=== PATIENT | male | born 1975 | race Caucasian/White ===

== ENCOUNTER 2019-11-17 23:36 | Emergency (ER) | payer SELFPAY ==
[~2019-11-17] VITALS: Ht 177.8 cm; Wt 80.0 kg
[2019-11-17 23:39] VITALS: BP 107/73
[2019-11-18] MEDS ORDERED: METHOCARBAMOL 750 MG TABLET PO ONE
[2019-11-18] MEDS ORDERED: METHOCARBAMOL 750 MG TABLET ONE (00:02)
--- NOTE | 2019-11-18 01:30 | NUR ---
PT STATES HE IS NOW READY FOR XRAY. IMAGING NOTIFIED. CALL LIGHT IN REACH.
--- NOTE | 2019-11-18 02:01 | NUR ---
this tech went to do ekg, pateint refused and wanted to speak to doctor before allowing me to do it.
--- NOTE | 2019-11-18 02:20 | NUR ---
PA at bedside
[2019-11-18] MEDS ORDERED: HYDROcodone/APAP 5/325 TABLET ONE (02:29)
[2019-11-18] MEDS ORDERED: HYDROcodone/APAP 5/325 TABLET PO ONE (02:30)
== END 2019-11-18 02:53 | disposition home or self-care (01) ==
LOC: ED 11-18 00:06
DX: G89.11 Acute pain due to trauma (principal); M54.41 Lumbago with sciatica, right side; W01.0XXA Fall on same level from slipping, tripping and stumbling without subsequent striking against object, initial encounter; Y93.89 Activity, other specified; Y92.89 Other specified places as the place of occurrence of the external cause; Y99.8 Other external cause status
CPT/HCPCS: 99284; J7512

== ENCOUNTER 2019-11-20 13:03 | Inpatient (IN) | payer MEDICAID, OTHER ==
[~2019-11-20] VITALS: Ht 177.8 cm; Wt 76.1 kg
[~2019-11-20 13:03] MED LIST: GLYCOPYRROLATE 0.2MG/1ML, 5ML ONE; NEOSTIGMINE 1 MG/ML, 10ML ONE; PROPOFOL 10 MG/ML, 20ML ONE; ROCURONIUM 10 MG/ML,10ML ONE
[2019-11-20] MEDS ORDERED: ONDANSETRON 2MG/ML, 2ML ONE (13:51)
[2019-11-20] MEDS ORDERED: MORPHINE SULFATE 4 MG/ML, 1ML ONE (13:52)
[2019-11-20] MEDS ORDERED: MORPHINE SULFATE 4 MG/ML, 1ML IVPush PRN (14:00)
[2019-11-20] MEDS ORDERED: SODIUM CHLORIDE FLUSH 10ML SYR IVF ONE (14:00)
[2019-11-20] MEDS ORDERED: ONDANSETRON 2MG/ML, 2ML IVPush ONE (14:00)
[2019-11-20] MEDS ORDERED: HYDROmorphone 1 MG/ML, 1ML INJ ONE ×2 (14:31→17:24)
[2019-11-20] MEDS: HYDROmorphone 2 MG/ML, 1ML IVPush PRN ×2 (14:34→17:28)
--- NOTE | 2019-11-20 14:34 | NUR ---
PT MEDICATED WITH DILAUDID PER ERP ORDER FOR PERSISTENT PAIN, UNABLE TO LIE FLAT FOR CT.
[2019-11-20] MEDS ORDERED: LORazepam 2 MG/ML, 1ML ONE (14:50)
--- NOTE | 2019-11-20 14:55 | NUR ---
ATIVAN GIVEN, PT PLACED ON 2LITERS VIA NC FOR DESAT TO 90%. PT STATES MORPHINE AND DILAUDID HAVEN'T HELPED PAIN. STILL RATED 9/10 WITH REPORTED MUSCLE SPASMS WORSENING WHEN ATTEMPTING TO LIE FLAT.
[2019-11-20] MEDS ORDERED: LORazepam 2 MG/ML, 1ML IVPush ONE (15:00)
--- NOTE | 2019-11-20 15:04 | NUR ---
PT REPORTING "PAIN IS WORSE" AFTER ATIVAN. ERP NOTIFIED, IN TO SPEAK WITH PT.
[2019-11-20] MEDS ORDERED: KETAMINE 10 MG/ML, 20ML ONE (15:19)
--- NOTE | 2019-11-20 15:27 | NUR ---
PT PLACED ON HEART MONITOR. KETAMINE GIVEN PER ERP ORDER. VSS/UPDATED IN COMPUTER. PT STILL UNABLE TO LIE FLAT AT THIS TIME AND REPORTS LOW BACK AND BLE PAIN STILL AT 9/10
[2019-11-20] MEDS ORDERED: KETAMINE 10 MG/ML, 20ML IV ONE (15:30)
--- NOTE | 2019-11-20 16:44 | NUR ---
PER ERP, PT TO BE ADMITTED FOR PAIN CONTROL AND INABILITY TO STAND. MED REC COMPLETED.
[2019-11-20] MEDS ORDERED: methylPREDNISolone SOD SUCC 125 MG/2 ML ONE (16:55)
[2019-11-20] MEDS ORDERED: GABAPENTIN 300 MG CAPSULE PO PRN (17:00)
[2019-11-20] MEDS ORDERED: PROMETHAZINE 25 MG/ML, 1ML IM PRN (17:00)
[2019-11-20] MEDS ORDERED: methylPREDNISolone SOD SUCC 125 MG/2 ML IVPush ONE (17:00)
[2019-11-20] MEDS ORDERED: ONDANSETRON 2MG/ML, 2ML IVPush PRN (17:00)
[2019-11-20] MEDS ORDERED: hydrALAzine 20 MG/ML, 1ML IVPush PRN (17:00)
[2019-11-20] MEDS ORDERED: LABETALOL 5MG/ML, 20ML IVPush PRN (17:00)
[2019-11-20] MEDS ORDERED: ACETAMINOPHEN 325 MG TABLET PO PRN (17:00)
[2019-11-20] MEDS ORDERED: HYDROmorphone 1 MG/ML, 1ML INJ IV ONE (17:30)
--- NOTE | 2019-11-20 17:32 | NUR ---
PT MEDICATED WITH DILAUDID PER ERP ORDER. PT TO MRI.
[2019-11-20 17:42] LABS: ANION GAP 7 mmol/L (5-15); CALCIUM 9.1 mg/dL (8.5-10.1); CHLORIDE 104 mmol/L (98-107); CREATININE 0.76 mg/dL (0.7-1.3)
[2019-11-20 17:43] LABS: BASOPHILS % (AUTO) 0 % (0-1); EOSINOPHILS % (AUTO) 0 % (1-7); LYMPHOCYTES # (AUTO) 0.63 x10^3/uL (1-3.4); LYMPHOCYTES % (AUTO) 8 % (22-44); MD NO; MEAN CORPUSCULAR HEMOGLOBIN 31.1 pg (27.5-34.5); MEAN CORPUSCULAR HGB CONC 34.5 g/dL (33.2-36.2); MEAN CORPUSCULAR VOLUME 90.2 fL (81-97); MEAN PLATELET VOLUME 8.6 fL (7.4-10.4); MONOCYTES # (AUTO) 0.05 x10^3/uL (0.2-0.8); MONOCYTES % (AUTO) 1 % (2-9); NEUTROPHILS # (AUTO) 6.85 x10^3/uL (1.8-6.8); NEUTROPHILS % (AUTO) 91 % (42-75); PLATELET COUNT 202 x10^3/uL (130-400); RED BLOOD COUNT 5.08 x10^6/uL (4.38-5.82); RED CELL DISTRIBUTION WIDTH 12.9 % (9.4-14.8)
--- NOTE | 2019-11-20 17:45 | NUR ---
REPORT TO VERONICA. PT BACK FROM MRI, READY FOR TRANSPORT TO FLOOR. PER RN INTAKE, PT UNABLE TO LIE FLAT TO COMPLETE EXAM.
[2019-11-20 18:09] VITALS: BP 98/63
[2019-11-20] MEDS: SODIUM CHLORIDE 0.9% 1,000 ML IV SCH (18:36)
[2019-11-20] MEDS: GABAPENTIN 300 MG CAPSULE PO SCH ×2 (18:37→20:24)
[2019-11-20] MEDS: OXYcodone/APAP 5/325MG TABLET PO PRN ×2 (18:37→23:24)
[2019-11-20] MEDS: morphine SULFATE 10 MG/ML, 1ML IVPush PRN (20:24)
[2019-11-20 20:39] VITALS: BP 98/58
[2019-11-21 01:18] VITALS: BP 100/66
[2019-11-21] MEDS: morphine SULFATE 10 MG/ML, 1ML IVPush PRN ×3 (03:30→20:31)
[2019-11-21] MEDS: OXYcodone/APAP 5/325MG TABLET PO PRN ×2 (04:01→23:31)
[2019-11-21] MEDS ORDERED: METH750T2 PO (04:09)
[2019-11-21] MEDS ORDERED: PRED20TA PO (04:09)
[2019-11-21 05:26] LABS: CHLORIDE 106 mmol/L (98-107)
[2019-11-21 05:28] LABS: BASOPHILS % (AUTO) 0 % (0-1); EOSINOPHILS % (AUTO) 0 % (1-7); LYMPHOCYTES # (AUTO) 1.03 x10^3/uL (1-3.4); LYMPHOCYTES % (AUTO) 11 % (22-44); MD NO; MEAN CORPUSCULAR HEMOGLOBIN 30.5 pg (27.5-34.5); MEAN CORPUSCULAR HGB CONC 33.3 g/dL (33.2-36.2); MEAN CORPUSCULAR VOLUME 91.6 fL (81-97); MEAN PLATELET VOLUME 8.6 fL (7.4-10.4); MONOCYTES # (AUTO) 0.41 x10^3/uL (0.2-0.8); MONOCYTES % (AUTO) 5 % (2-9); NEUTROPHILS # (AUTO) 7.66 x10^3/uL (1.8-6.8); NEUTROPHILS % (AUTO) 84 % (42-75); PLATELET COUNT 193 x10^3/uL (130-400); RED BLOOD COUNT 4.67 x10^6/uL (4.38-5.82)
[2019-11-21 05:39] LABS: ALANINE AMINOTRANSFERASE 23 U/L (12-78); ALBUMIN 3.6 g/dL (3.4-5.0); ALKALINE PHOSPHATASE 46 U/L (45-117); ANION GAP 6 mmol/L (5-15); BILIRUBIN,TOTAL 0.8 mg/dL (0.2-1.0); CALCIUM 8.7 mg/dL (8.5-10.1); CREATININE 0.84 mg/dL (0.7-1.3); TOTAL PROTEIN 6.9 g/dL (6.4-8.2)
[2019-11-21 06:54] VITALS: BP 86/58
[2019-11-21] MEDS: SODIUM CHLORIDE 0.9% 1,000 ML IV SCH ×2 (07:40→20:31)
[2019-11-21] MEDS: GABAPENTIN 300 MG CAPSULE PO SCH ×3 (07:41→20:31)
[2019-11-21] MEDS ORDERED: HYDROcodone/APAP 5/325 TABLET PO ONE (08:30)
[2019-11-21] MEDS ORDERED: CYCLOBENZAPRINE 10 MG TABLET PO ONE (08:30)
[2019-11-21] MEDS ORDERED: MEDROL 4MG DOSEPAK PO SCH (09:00)
[2019-11-21 09:27] VITALS: BP 105/64
[2019-11-21] MEDS ORDERED: FENTANYL PF 100 MCG/2ML ONE ×2 (12:28→14:26)
[2019-11-21] MEDS ORDERED: MIDAZOLAM 1 MG/ML, 2ML ONE (12:28)
[2019-11-21] MEDS ORDERED: TRIAMCINOLONE ACETONIDE 40 MG/ML, 1ML ONE (13:27)
[2019-11-21] MEDS: FENTANYL PF 100 MCG/2ML IV PRN ×2 (14:14→14:33)
[2019-11-21] MEDS ORDERED: HYDROmorphone 1 MG/ML, 1ML INJ ONE (14:26)
[2019-11-21] MEDS ORDERED: OXYcodone 5 MG/5 ML ORAL.SOL UDC ONE (14:26)
[2019-11-21] MEDS ORDERED: ONDANSETRON 2MG/ML, 2ML IVPush PRN (14:30)
[2019-11-21] MEDS ORDERED: OXYcodone 5 MG/5 ML ORAL.SOL UDC PO PRN (14:30)
[2019-11-21] MEDS ORDERED: MEPERIDINE/PF 25MG/0.5ML IVPush PRN (14:30)
[2019-11-21] MEDS ORDERED: morphine SULFATE 10 MG/ML, 1ML IVPush PRN (14:30)
[2019-11-21] MEDS: HYDROmorphone 1 MG/ML, 1ML INJ IVPush PRN ×2 (14:34→14:42)
[2019-11-21] MEDS: CYCLOBENZAPRINE 10 MG TABLET PO PRN ×2 (16:45→23:31)
[2019-11-21] MEDS: HYDROcodone/APAP 5/325 TABLET PO PRN ×2 (17:01→21:23)
[2019-11-21 18:43] VITALS: BP 102/53
[2019-11-22] MEDS: morphine SULFATE 10 MG/ML, 1ML IVPush PRN ×2 (00:12→03:43)
[2019-11-22 00:35] VITALS: BP 92/54
[2019-11-22] MEDS: HYDROcodone/APAP 5/325 TABLET PO PRN ×4 (03:42→22:18)
[2019-11-22] MEDS: SODIUM CHLORIDE 0.9% 1,000 ML IV SCH (03:43)
[2019-11-22] MEDS: OXYcodone/APAP 5/325MG TABLET PO PRN ×2 (05:22→19:14)
[2019-11-22] MEDS: CYCLOBENZAPRINE 10 MG TABLET PO PRN (05:22)
[2019-11-22] MEDS: GABAPENTIN 300 MG CAPSULE PO SCH ×3 (08:07→19:14)
[2019-11-22] MEDS: CYCLOBENZAPRINE 10 MG TABLET PO SCH ×3 (08:07→19:14)
[2019-11-22 08:08] VITALS: BP 104/61
[2019-11-22] MEDS: DIAZEPAM 5 MG/ML, 2ML IV PRN ×2 (08:08→18:04)
[2019-11-22] MEDS ORDERED: BISACODYL 10 MG SUPP PR PRN (10:00)
[2019-11-22] MEDS: DEXAMETHASONE 4 MG TABLET PO SCH ×3 (10:22→22:18)
[2019-11-22] MEDS: SENNA/DOCUSATE TABLET PO SCH (10:23)
[2019-11-22] MEDS: LIDODERM 5% PATCH TD PRN (10:24)
[2019-11-22] MEDS: POLYETHYLENE GLYCOL 17 GM PACKET PO SCH (10:24)
[2019-11-22 13:45] VITALS: BP 102/58
[2019-11-22 19:00] VITALS: BP 116/70
[2019-11-23 00:22] VITALS: BP 121/73
[2019-11-23] MEDS: HYDROcodone/APAP 5/325 TABLET PO PRN ×3 (02:09→19:29)
[2019-11-23] MEDS: DEXAMETHASONE 4 MG TABLET PO SCH ×4 (05:15→22:22)
[2019-11-23] MEDS: OXYcodone/APAP 5/325MG TABLET PO PRN ×2 (05:15→14:02)
[2019-11-23] MEDS: CYCLOBENZAPRINE 10 MG TABLET PO SCH ×3 (07:34→22:22)
[2019-11-23] MEDS: POLYETHYLENE GLYCOL 17 GM PACKET PO SCH (07:34)
[2019-11-23] MEDS: SENNA/DOCUSATE TABLET PO SCH (07:34)
[2019-11-23] MEDS: GABAPENTIN 300 MG CAPSULE PO SCH ×3 (07:34→22:22)
[2019-11-23 08:34] VITALS: BP 124/75
[2019-11-23] MEDS: KETOROLAC 30 MG/1 ML IVPush SCH ×3 (10:17→22:22)
[2019-11-23] MEDS: LIDODERM 5% PATCH TD PRN (11:36)
[2019-11-23 12:55] VITALS: BP 121/77
[2019-11-23] MEDS: ENOXAPARIN 40 MG/0.4 ML SQ SCH (14:02)
[2019-11-23 19:29] VITALS: BP 111/76
[2019-11-23 20:00] VITALS: BP 119/75
[2019-11-24 00:10] VITALS: BP 124/75
[2019-11-24] MEDS: OXYcodone/APAP 5/325MG TABLET PO PRN ×2 (00:39→22:41)
[2019-11-24] MEDS: DEXAMETHASONE 4 MG TABLET PO SCH ×4 (04:41→22:31)
[2019-11-24] MEDS: KETOROLAC 30 MG/1 ML IVPush SCH ×4 (04:41→22:29)
[2019-11-24] MEDS: HYDROcodone/APAP 5/325 TABLET PO PRN ×3 (04:41→14:35)
[2019-11-24 06:39] VITALS: BP 131/74
[2019-11-24] MEDS: SENNA/DOCUSATE TABLET PO SCH (09:36)
[2019-11-24] MEDS: CYCLOBENZAPRINE 10 MG TABLET PO SCH ×3 (09:36→22:30)
[2019-11-24] MEDS: GABAPENTIN 300 MG CAPSULE PO SCH ×3 (09:36→22:31)
[2019-11-24] MEDS: POLYETHYLENE GLYCOL 17 GM PACKET PO SCH (09:36)
[2019-11-24 12:34] VITALS: BP 120/79
[2019-11-24] MEDS: ENOXAPARIN 40 MG/0.4 ML SQ SCH ×2 (14:00→14:35)
[2019-11-24] MEDS: LIDODERM 5% PATCH TD PRN (16:15)
[2019-11-24 18:52] VITALS: BP 118/76
[2019-11-25 00:46] VITALS: BP 119/70
[2019-11-25] MEDS: DEXAMETHASONE 4 MG TABLET PO SCH ×3 (04:40→16:24)
[2019-11-25] MEDS: KETOROLAC 30 MG/1 ML IVPush SCH ×3 (04:40→16:24)
[2019-11-25] MEDS: OXYcodone/APAP 5/325MG TABLET PO PRN ×4 (04:44→18:03)
[2019-11-25 06:42] VITALS: BP 138/78
[2019-11-25] MEDS: SENNA/DOCUSATE TABLET PO SCH (09:00)
[2019-11-25] MEDS: POLYETHYLENE GLYCOL 17 GM PACKET PO SCH (09:00)
[2019-11-25] MEDS: GABAPENTIN 300 MG CAPSULE PO SCH ×2 (09:23→16:24)
[2019-11-25] MEDS: CYCLOBENZAPRINE 10 MG TABLET PO SCH ×2 (09:23→16:24)
[2019-11-25] MEDS ORDERED: SODIUM CHLORIDE 0.9% 1,000 ML IV SCH (10:30)
[2019-11-25 13:04] VITALS: BP 122/67
[2019-11-25] MEDS: ENOXAPARIN 40 MG/0.4 ML SQ SCH ×2 (13:26→13:30)
[2019-11-25] MEDS ORDERED: CYCL-259 PO (17:17)
[2019-11-25] MEDS ORDERED: NAPR-685 PO (17:17)
[2019-11-25] MEDS ORDERED: LIDO700A20 TD (17:17)
[2019-11-25] MEDS ORDERED: METH4TAB2 PO (17:17)
[2019-11-25] MEDS: LIDODERM 5% PATCH TD PRN (19:10)
== END 2019-11-25 19:23 | disposition home or self-care (01) | DRG 552 ==
LOC: ED 14:48 → EDIP 16:56 → 3N 18:01
PROVIDERS: ADMIT Internal Medicine; ATTEND Internal Medicine
PROC: 3E0S33Z Introduction of Anti-inflammatory into Epidural Space, Percutaneous Approach (ICD-10-PCS; principal; 2019-11-21 12:30)
DX: M48.061 Spinal stenosis, lumbar region without neurogenic claudication (principal); M51.16 Intervertebral disc disorders with radiculopathy, lumbar region; M51.17 Intervertebral disc disorders with radiculopathy, lumbosacral region; M62.81 Muscle weakness (generalized); R20.0 Anesthesia of skin; M19.90 Unspecified osteoarthritis, unspecified site; Z20.828 Contact with and (suspected) exposure to other viral communicable diseases
CPT/HCPCS: 36415; 62323; 72131; 72148; 72192; 80048; 80053; 82962; 85025; 87635; G0378; J1170; J1650; J1885; J2250; J2405; J2704; J2710; J3010; J3301; J3360; J7509; J2060; J2270; J2930; J7030

== ENCOUNTER → 2020-01-13 | Outpatient (CLI) | payer MEDICAID ==
[~2020-01-13] MED LIST changes: +CYCL-259 PO; -GLYCOPYRROLATE 0.2MG/1ML, 5ML ONE; +LIDO700A20 TD; +METH4TAB2 PO; +METH750T2 PO; +NAPR-685 PO; -NEOSTIGMINE 1 MG/ML, 10ML ONE; +PRED20TA PO; -PROPOFOL 10 MG/ML, 20ML ONE; -ROCURONIUM 10 MG/ML,10ML ONE
== END | disposition home or self-care (01) ==
LOC: RAD 08:18
PROVIDERS: ATTEND Physician Assistant Surgical
DX: M51.16 Intervertebral disc disorders with radiculopathy, lumbar region (principal); M51.37 Other intervertebral disc degeneration, lumbosacral region
CPT/HCPCS: 72114

== ENCOUNTER 2020-01-20 19:45 | Emergency (ER) | payer MEDICAID ==
[~2020-01-20] VITALS: Ht 177.8 cm; Wt 76.3 kg
--- NOTE | 2020-01-20 20:08 | NUR ---
CC OF INCREASING LOWER BACK FROM FALL INJURY ON 11/20/19. PT SEEN HERE THEN AND HAS BEEN TAKING CYCLOBENZAPRINE SINCE ACCIDENT. PT STATES PAIN STARTS IN NECK AND MOVES DOWN SPINE TO LUMBAR AREA. PT UNABLE TO SIT OR LAY IN GURNEY, SITTING STRAIGHT UP ON SIDE OF GURNEY. MOTHER AT BEDSIDE.
[2020-01-20] MEDS ORDERED: METHOCARBAMOL 750 MG TABLET PO ONE (21:00)
[2020-01-20] MEDS ORDERED: METHOCARBAMOL 750 MG TABLET ONE (21:15)
[2020-01-20 22:06] VITALS: BP 112/76
== END 2020-01-20 22:08 | disposition home or self-care (01) ==
LOC: ED 20:28
DX: M51.26 Other intervertebral disc displacement, lumbar region (principal)
CPT/HCPCS: 99283

== ENCOUNTER 2020-02-05 20:34 | Emergency (ER) | payer MEDICAID ==
[~2020-02-05] VITALS: Ht 177.8 cm; Wt 76.7 kg
--- NOTE | 2020-02-05 23:30 | NUR ---
First contact with patient: Patient presents to ER c/o low back pain x3 days. Patient states he had a previous injury with a herniated disc. Patient is now having pain. Patient is in NAD. Respirations even and unlabored.
[2020-02-05] MEDS ORDERED: KETOROLAC 60 MG/2 ML ONE (23:58)
[2020-02-05] MEDS ORDERED: DIAZEPAM 5 MG TABLET ONE (23:58)
[2020-02-05] MEDS ORDERED: HYDROcodone/APAP 10/325 MG TABLET ONE (23:58)
[2020-02-06] MEDS ORDERED: KETOROLAC 60 MG/2 ML IM ONE
[2020-02-06] MEDS ORDERED: HYDROcodone/APAP 10/325 MG TABLET PO ONE
[2020-02-06] MEDS ORDERED: DIAZEPAM 5 MG TABLET PO ONE
--- NOTE | 2020-02-06 | NUR ---
Medicated patient per mar.
[2020-02-06 00:08] VITALS: BP 116/76
== END 2020-02-06 01:10 | disposition home or self-care (01) ==
LOC: ED 23:13
DX: M54.16 Radiculopathy, lumbar region (principal)
CPT/HCPCS: 96372; 99284; J1885; J7512

== ENCOUNTER 2020-03-23 11:56 | Emergency (ER) | payer MEDICAID ==
[~2020-03-23] VITALS: Ht 177.8 cm; Wt 76.1 kg
[2020-03-23 12:20] VITALS: BP 102/66
--- NOTE | 2020-03-23 12:38 | NUR ---
THORACIC AND LUMBAR BACK PAIN X 4 DAYS. HX: LUMBAR DISK HERNIATION. DENIES BOWEL OR BLADDER ISSUES, NO WEAKNESS OR NUMBNESS OF LEGS. NO LUMBAR SURGICAL HX
[2020-03-23] MEDS ORDERED: KETOROLAC 30 MG/1 ML IM ONE (13:00)
[2020-03-23] MEDS ORDERED: DIAZEPAM 5 MG TABLET PO ONE (13:00)
[2020-03-23] MEDS ORDERED: KETOROLAC 30 MG/1 ML ONE (13:16)
[2020-03-23] MEDS ORDERED: DIAZEPAM 5 MG TABLET ONE (13:16)
--- NOTE | 2020-03-23 13:22 | NUR ---
MEDICATED PER EMAR FOR ACUTE ON CHRONIC LOWER BACK PAIN AT 10/20 WITH DEFICITS
--- NOTE | 2020-03-23 13:46 | NUR ---
PAIN IMPROVED TO 3/10 DISCHARGED IN CARE OF WHO WILL DRIVE HIM HOME REVIEWED POC (PT/F/U WITH PCP AND OR NEUROSURGERY)
== END 2020-03-23 13:49 | disposition home or self-care (01) ==
LOC: ED 13:47
DX: M62.830 Muscle spasm of back (principal)
CPT/HCPCS: 96372; 99283; J1885

== ENCOUNTER 2020-03-31 18:21 | Emergency (ER) | payer MEDICAID ==
[~2020-03-31] VITALS: Ht 177.8 cm; Wt 75.0 kg
--- NOTE | 2020-03-31 19:20 | NUR ---
RN at bedside. Provider at bedside. Family at bedside.
--- NOTE | 2020-03-31 19:38 | NUR ---
Provided pt warm blanket
[2020-03-31] MEDS ORDERED: DIAZEPAM 5 MG TABLET ONE (19:48)
[2020-03-31] MEDS ORDERED: KETOROLAC 30 MG/1 ML ONE (19:48)
[2020-03-31] MEDS ORDERED: DIAZEPAM 5 MG TABLET PO ONE (20:00)
[2020-03-31] MEDS ORDERED: SODIUM CHLORIDE FLUSH 10ML SYR IVF ONE (20:00)
[2020-03-31] MEDS ORDERED: KETOROLAC 30 MG/1 ML IVPush ONE (20:00)
[2020-03-31 21:25] VITALS: BP 112/74
--- NOTE | 2020-03-31 21:57 | NUR ---
Pt discharged with presciptions for muscle relaxer, toradol, and prednisone.
== END 2020-03-31 21:59 | disposition home or self-care (01) ==
LOC: ED 18:56
DX: G89.29 Other chronic pain (principal); M54.12 Radiculopathy, cervical region; M51.36 Other intervertebral disc degeneration, lumbar region; M51.26 Other intervertebral disc displacement, lumbar region; R00.0 Tachycardia, unspecified
CPT/HCPCS: 93005; 96374; 99283; J1885; J7512

== ENCOUNTER 2020-04-06 00:40 | Emergency (ER) | payer MEDICAID ==
[~2020-04-06] VITALS: Ht 177.8 cm; Wt 73.8 kg
[2020-04-06 00:42] VITALS: BP 121/82
[2020-04-06] MEDS ORDERED: LIDODERM 5% PATCH TD ONE ×4 (01:30→03:18)
[2020-04-06] MEDS ORDERED: KETOROLAC 30 MG/1 ML IM ONE (01:30)
[2020-04-06] MEDS ORDERED: DIAZEPAM 5 MG TABLET PO ONE (01:30)
[2020-04-06] MEDS ORDERED: KETOROLAC 30 MG/1 ML ONE (01:39)
[2020-04-06] MEDS ORDERED: DIAZEPAM 5 MG TABLET ONE (01:39)
--- NOTE | 2020-04-06 02:25 | NUR ---
LATE ENTRY. CC OF BACK AND SIDE PAIN. PT STATES HE HAS HAD BACK PAIN FOR 5-6 MONTHS AND HAS STARTED FEELING PAIN TO WHERE HE CANT SLEEP DOWN THE RIGHT SIDE OF HIS BACK ALONG RIBS. PT NOT ABLE TO LAY IN [facility] ROOM DUE TO PAIN.
--- NOTE | 2020-04-06 02:26 | NUR ---
PT STATES HE STILL HAS PAIN AND NO RELIEF WITH PAIN MEDS
[2020-04-06] MEDS ORDERED: HYDROcodone/APAP 5/325 TABLET ONE (03:56)
[2020-04-06] MEDS ORDERED: HYDROcodone/APAP 5/325 TABLET PO ONE (04:00)
== END 2020-04-06 04:15 | disposition home or self-care (01) ==
LOC: ED 03:22
DX: M48.061 Spinal stenosis, lumbar region without neurogenic claudication (principal); M51.36 Other intervertebral disc degeneration, lumbar region; G89.11 Acute pain due to trauma; R07.81 Pleurodynia; W01.0XXA Fall on same level from slipping, tripping and stumbling without subsequent striking against object, initial encounter; Y93.89 Activity, other specified; Y92.89 Other specified places as the place of occurrence of the external cause; Y99.8 Other external cause status
CPT/HCPCS: 71101; 96372; 99284; J1885

== ENCOUNTER 2020-04-10 19:40 | Emergency (ER) | payer MEDICAID ==
[~2020-04-10] VITALS: Ht 177.8 cm; Wt 74.1 kg
[2020-04-10 19:57] VITALS: BP 128/80
--- NOTE | 2020-04-10 20:18 | NUR ---
pt ambulated to room 8. family with pt. standing next to bed. says it's to painful to lie down.
--- NOTE | 2020-04-10 20:19 | NUR ---
PA to bedside to eval pt.
[2020-04-10] MEDS ORDERED: KETOROLAC 30 MG/1 ML ONE (20:47)
[2020-04-10] MEDS ORDERED: DIAZEPAM 5 MG TABLET ONE (20:47)
[2020-04-10] MEDS ORDERED: HYDROcodone/APAP 5/325 TABLET ONE (20:48)
--- NOTE | 2020-04-10 20:57 | NUR ---
meds given to pt and he tolerated well. waiting on dc instructions to send pt home.
[2020-04-10] MEDS ORDERED: HYDROcodone/APAP 5/325 TABLET PO ONE (21:00)
[2020-04-10] MEDS ORDERED: DIAZEPAM 5 MG TABLET PO ONE (21:00)
[2020-04-10] MEDS ORDERED: KETOROLAC 30 MG/1 ML IM ONE (21:00)
== END 2020-04-10 22:05 | disposition home or self-care (01) ==
LOC: ED 20:35
DX: G89.29 Other chronic pain (principal); M54.5 Low back pain; M48.061 Spinal stenosis, lumbar region without neurogenic claudication; M51.36 Other intervertebral disc degeneration, lumbar region
CPT/HCPCS: 99281

== ENCOUNTER 2020-04-11 12:51 | Emergency (ER) | payer MEDICAID ==
[~2020-04-11] VITALS: Ht 177.8 cm; Wt 75.0 kg
[2020-04-11] MEDS ORDERED: DIAZEPAM 5 MG TABLET PO/NG STA (13:37)
[2020-04-11] MEDS ORDERED: KETOROLAC 60 MG/2 ML ONE (13:49)
[2020-04-11] MEDS ORDERED: DIAZEPAM 5 MG TABLET ONE (13:49)
[2020-04-11] MEDS ORDERED: KETOROLAC 30 MG/1 ML IM ONE (14:00)
[2020-04-11 14:53] VITALS: BP 92/52
--- NOTE | 2020-04-11 15:28 | NUR ---
DISCHARGE INSTRUCTIONS REVIEWED.
== END 2020-04-11 15:34 | disposition home or self-care (01) ==
LOC: ED 13:32
DX: M54.5 Low back pain (principal); I45.9 Conduction disorder, unspecified; M54.2 Cervicalgia
CPT/HCPCS: 93005; 96372; 99283; J1885

== ENCOUNTER 2020-04-26 05:56 | Inpatient (IN) | payer MEDICAID ==
[~2020-04-26] VITALS: Ht 177.8 cm; Wt 75.0 kg
[~2020-04-26 05:56] MED LIST changes: -CYCL-259 PO; +CYCL10TA2 PO; +METH-640 PO; -METH750T2 PO
--- NOTE | 2020-04-26 06:15 | NUR ---
INITIAL PT CONTACT. PT PRESENTS TO ED C/O ALL OVER MUSCLE CRAMPS AND LOWER BACK PAIN AND CHEST TIGHTNESS. HX OF LOWER BACK INJURY X5 MONTHS AGO, RECURRENT PAIN SINCE. PT PRONE ON GURNEY, CALL LIGHT AND PERSONAL BELONGINGS WITHIN REACH. FAMILY AT BEDSIDE. ERP AT BEDSIDE
[2020-04-26] MEDS ORDERED: DIAZEPAM 5 MG/ML, 2ML IVPush ONE (06:30)
[2020-04-26] MEDS ORDERED: SODIUM CHLORIDE FLUSH 10ML SYR IVF ONE (06:30)
[2020-04-26] MEDS ORDERED: ONDANSETRON 2MG/ML, 2ML IVPush ONE (06:30)
[2020-04-26] MEDS ORDERED: HYDROmorphone 2 MG/ML, 1ML IVPush PRN (06:30)
[2020-04-26] MEDS ORDERED: DIAZEPAM 5 MG/ML, 2ML ONE (06:37)
[2020-04-26] MEDS ORDERED: ONDANSETRON 2MG/ML, 2ML ONE (06:37)
[2020-04-26] MEDS ORDERED: HYDROmorphone 1 MG/ML, 1ML INJ ONE (06:37)
[2020-04-26 06:47] LABS: BASOPHILS % (AUTO) 0 % (0-1); EOSINOPHILS % (AUTO) 4 % (1-7); LYMPHOCYTES % (AUTO) 31 % (22-44); MEAN CORPUSCULAR HEMOGLOBIN 31.2 pg (27.5-34.5); MEAN CORPUSCULAR HGB CONC 34.7 g/dL (33.2-36.2); MEAN PLATELET VOLUME 7.6 fL (7.4-10.4); MONOCYTES % (AUTO) 6 % (2-9); NEUTROPHILS % (AUTO) 60 % (42-75); PLATELET COUNT 184 x10^3/uL (130-400); RED BLOOD COUNT 4.79 x10^6/uL (4.38-5.82); RED CELL DISTRIBUTION WIDTH 13.3 % (9.4-14.8)
[2020-04-26 06:48] LABS: MD NO
[2020-04-26 06:57] LABS: ALANINE AMINOTRANSFERASE 29 U/L (12-78); ALBUMIN 3.7 g/dL (3.4-5.0); ANION GAP 7 mmol/L (5-15); CALCIUM 8.6 mg/dL (8.5-10.1); CHLORIDE 107 mmol/L (98-107)
--- NOTE | 2020-04-26 06:59 | NUR ---
Pt appears much more comfortable after meds; is smiling, laughing, RR equal and unlabored. Placed on cont pulse ox. Report to LAWRENCE Olguin
[2020-04-26 07:00] LABS: ALKALINE PHOSPHATASE 58 U/L (45-117); CREATINE KINASE, TOTAL 363 U/L (39-308); TOTAL PROTEIN 6.7 g/dL (6.4-8.2)
[2020-04-26] MEDS ORDERED: methylPREDNISolone SOD SUCC 125 MG/2 ML IVPush ONE (07:00)
--- NOTE | 2020-04-26 07:00 | NUR ---
BEDSIDE REPORT TO [facility]
--- NOTE | 2020-04-26 07:00 | NUR ---
assumed care of pt. report from [facility]. pt here for LBP for several days. pt reports that he has a back hx of injury about 5 months ago from heavy lifting pt denies numbness/tingling to extremities. no loss of bowel or bladder control. pt has been medicated for pain per order pt mother at bedside
--- NOTE | 2020-04-26 08:05 | NUR ---
up to this point, pt refused to get undressed. assisted pt to undress and get into a gown. positioning for comfort. pt reports some relief of pain after medications. warm blankets have been given pt madde aware that urine sample needed. urinal given per request
[2020-04-26 09:00] LABS: MICROSCOPIC NOT IND
--- NOTE | 2020-04-26 09:00 | NUR ---
pt resting in position of comfort on his side. no apparent distress. mother at bedside. awaiting test results
[2020-04-26] MEDS ORDERED: HYDROmorphone PCA 30 MG/30 ML IV PRN ×2 (10:00→12:30)
[2020-04-26] MEDS ORDERED: CYCLOBENZAPRINE 10 MG TABLET PO SCH (10:00)
[2020-04-26] MEDS ORDERED: SODIUM CHLORIDE FLUSH 10ML SYR IVF PRN (10:00)
[2020-04-26] MEDS ORDERED: CYCLOBENZAPRINE 10 MG TABLET ONE (10:46)
[2020-04-26] MEDS ORDERED: methylPREDNISolone SOD SUCC 125 MG/2 ML ONE (10:46)
--- NOTE | 2020-04-26 10:55 | NUR ---
pt has been medicated per order. pt to MRI via [place]
--- NOTE | 2020-04-26 11:23 | NUR ---
TASK RN: REPORT GIVEN TO RAGHAV BARDALES RN. ALL QUESTIONS ANSWERED. AWAITING PT TRANSPORT.
--- NOTE | 2020-04-26 11:30 | NUR ---
pt still in MRI
[2020-04-26] MEDS ORDERED: TRAM50TA2 PO (11:34)
[2020-04-26] MEDS ORDERED: MAGN300C PO (11:34)
--- NOTE | 2020-04-26 11:47 | NUR ---
pt returned to room report has been called to floor pt awaiting transport
--- NOTE | 2020-04-26 12:10 | NUR ---
pt waiting for transport report to [facility] for lunch
[2020-04-26] MEDS: BACLOFEN 10 MG TABLET PO SCH ×3 (12:43→20:18)
[2020-04-26] MEDS: LIDODERM 5% PATCH TD SCH (12:45)
[2020-04-26] MEDS ORDERED: MEDROL 4MG DOSEPAK PO SCH (13:00)
[2020-04-26] MEDS ORDERED: POLYETHYLENE GLYCOL 17 GM PACKET PO PRN (13:00)
[2020-04-26] MEDS ORDERED: ACETAMINOPHEN 325 MG TABLET PO PRN (13:00)
[2020-04-26] MEDS ORDERED: ONDANSETRON ODT 4 MG PO PRN (13:00)
[2020-04-26] MEDS ORDERED: ONDANSETRON 2MG/ML, 2ML IVPush PRN (13:00)
[2020-04-26] MEDS: KETOROLAC 30 MG/1 ML IVPush PRN ×2 (13:21→20:18)
[2020-04-26 14:00] VITALS: BP 108/67
[2020-04-26] MEDS: GABAPENTIN 300 MG CAPSULE PO SCH ×2 (16:00→20:18)
[2020-04-26 16:40] VITALS: BP 100/59
[2020-04-26] MEDS: SENNA/DOCUSATE TABLET PO SCH (16:58)
[2020-04-26 20:06] VITALS: BP 109/65
[2020-04-27 01:26] VITALS: BP 103/63
[2020-04-27] MEDS: KETOROLAC 30 MG/1 ML IVPush PRN ×2 (02:15→12:19)
[2020-04-27 06:55] VITALS: BP 108/61
[2020-04-27] MEDS: BACLOFEN 10 MG TABLET PO SCH ×2 (08:17→15:14)
[2020-04-27] MEDS: SENNA/DOCUSATE TABLET PO SCH (08:17)
[2020-04-27] MEDS: GABAPENTIN 300 MG CAPSULE PO SCH (08:18)
[2020-04-27] MEDS: LIDODERM 5% PATCH TD SCH (08:19)
[2020-04-27] MEDS ORDERED: HYDROmorphone PCA 30 MG/30 ML IV PRN (08:30)
[2020-04-27] MEDS ORDERED: PREGABALIN 75 MG CAPSULE PO ONE (09:30)
[2020-04-27 13:02] VITALS: BP 122/69
[2020-04-27] MEDS ORDERED: HYDR-3567 PO (13:29)
[2020-04-27] MEDS ORDERED: BACL20TA PO (13:29)
[2020-04-27] MEDS ORDERED: PREG75CA PO (13:29)
[2020-04-27] MEDS ORDERED: KETO10TA PO (13:59)
[2020-04-27] MEDS ORDERED: PREGABALIN 75 MG CAPSULE PO SCH (16:00)
== END 2020-04-27 15:40 | disposition home or self-care (01) | DRG 552 ==
LOC: ED 08:19 → SUATTDRO 09:35 → EDIP 09:37 → 3N 12:18 → DCLOUNGE 04-27 15:33
PROVIDERS: ADMIT Internal Medicine; ATTEND Internal Medicine
DX: M51.26 Other intervertebral disc displacement, lumbar region (principal); G89.29 Other chronic pain; M54.16 Radiculopathy, lumbar region; Z79.899 Other long term (current) drug therapy; Z82.49 Family history of ischemic heart disease and other diseases of the circulatory system; Z83.3 Family history of diabetes mellitus; Z80.8 Family history of malignant neoplasm of other organs or systems
CPT/HCPCS: 36415; 72148; 80053; 81003; 82550; 85025; 96374; 96375; 99285; G0378; J1170; J1885; J2405; J3360; J7509; J2930

== ENCOUNTER 2020-05-05 10:47 | Emergency (ER) | payer MEDICAID ==
[~2020-05-05] VITALS: Ht 177.8 cm; Wt 75.0 kg
[~2020-05-05 10:47] MED LIST changes: +BACL20TA PO; +HYDR-3567 PO; +KETO10TA PO; +MAGN300C PO; +PREG75CA PO; +TRAM50TA2 PO
--- NOTE | 2020-05-05 11:03 | NUR ---
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
[2020-05-05] MEDS ORDERED: DIAZEPAM 5 MG/ML, 2ML ONE (11:53)
[2020-05-05] MEDS ORDERED: ONDANSETRON 2MG/ML, 2ML ONE (11:53)
[2020-05-05] MEDS ORDERED: HYDROmorphone 1 MG/ML, 1ML INJ ONE (11:53)
[2020-05-05] MEDS ORDERED: DIAZEPAM 5 MG/ML, 2ML IV ONE (12:00)
[2020-05-05] MEDS ORDERED: SODIUM CHLORIDE 0.9% 1,000ML IV ONE (12:00)
[2020-05-05] MEDS ORDERED: HYDROmorphone 2 MG/ML, 1ML IVPush PRN (12:00)
[2020-05-05] MEDS ORDERED: ONDANSETRON 2MG/ML, 2ML IVPush ONE (12:00)
[2020-05-05 12:06] LABS: BASOPHILS % (AUTO) 1 % (0-1); EOSINOPHILS % (AUTO) 5 % (1-7); LYMPHOCYTES % (AUTO) 29 % (22-44); MD NO; MEAN CORPUSCULAR HGB CONC 34.4 g/dL (33.2-36.2); MEAN PLATELET VOLUME 7.7 fL (7.4-10.4); MONOCYTES % (AUTO) 6 % (2-9); NEUTROPHILS % (AUTO) 60 % (42-75); PLATELET COUNT 175 x10^3/uL (130-400); RED BLOOD COUNT 4.48 x10^6/uL (4.38-5.82); RED CELL DISTRIBUTION WIDTH 13.3 % (9.4-14.8)
[2020-05-05 12:18] LABS: ALANINE AMINOTRANSFERASE 28 U/L (12-78); ALBUMIN 3.4 g/dL (3.4-5.0); ANION GAP 5 mmol/L (5-15); CALCIUM 8.5 mg/dL (8.5-10.1); CHLORIDE 111 mmol/L (98-107); CREATININE 0.68 mg/dL (0.7-1.3)
[2020-05-05 12:20] LABS: ALKALINE PHOSPHATASE 59 U/L (45-117); BILIRUBIN,TOTAL 0.7 mg/dL (0.2-1.0); CREATINE KINASE, TOTAL 406 U/L (39-308); TOTAL PROTEIN 6.3 g/dL (6.4-8.2)
--- NOTE | 2020-05-05 12:40 | NUR ---
PT TO MRI
[2020-05-05] MEDS ORDERED: GADOTERATE 7.5 MMOL/15ML SYR ONE (13:02)
--- NOTE | 2020-05-05 13:45 | NUR ---
PT BACK FROM MRI. MONITOR IN PLACE.
[2020-05-05 13:54] VITALS: BP 100/67
[2020-05-05] MEDS ORDERED: KETOROLAC 30 MG/1 ML ONE (14:08)
[2020-05-05 14:20] LABS: MICROSCOPIC AUTO
[2020-05-05] MEDS ORDERED: KETOROLAC 30 MG/1 ML IVPush ONE (14:30)
== END 2020-05-05 15:20 | disposition home or self-care (01) ==
LOC: ED 13:41
DX: M54.5 Low back pain (principal); M54.6 Pain in thoracic spine; G89.29 Other chronic pain; M62.838 Other muscle spasm; R51.9 Headache, unspecified; I48.91 Unspecified atrial fibrillation
CPT/HCPCS: 36415; 70553; 72156; 80053; 81001; 82550; 85025; 93005; 96361; 96374; 96375; 99285; A9575; J1170; J1885; J2405; J3360; J7030

== ENCOUNTER 2020-05-12 19:27 | Emergency (ER) | payer MEDICAID ==
[~2020-05-12] VITALS: Ht 177.8 cm; Wt 77.8 kg
[2020-05-12 19:29] VITALS: BP 92/71
--- NOTE | 2020-05-12 19:42 | NUR ---
break rn: pt states having pain around inner thighs. pt states pain radiates from bilateral rib cage and down to hips as well. pt states he has a history of chronic pain and was recently admitted to the hospital for intractble pain and was on a dilaudid drip. visibly pt's inner thighs are slightly red, no inflammation noted. pt rested in rney, continous pulse ox in place, awaitng erp eval
--- NOTE | 2020-05-12 20:10 | NUR ---
pt out to imaging, in [place] with no signs or symptoms of acute distress noted respiraitons even and unlabored.
== END 2020-05-12 21:25 | disposition home or self-care (01) ==
LOC: ED 21:15
DX: N20.0 Calculus of kidney (principal); M79.652 Pain in left thigh; M79.651 Pain in right thigh; M79.642 Pain in left hand
CPT/HCPCS: 74176; 99284

== ENCOUNTER 2020-06-11 23:30 | Emergency (ER) | payer MEDICAID ==
[~2020-06-11] VITALS: Ht 177.8 cm; Wt 77.3 kg
[2020-06-11 23:39] VITALS: BP 111/74
--- NOTE | 2020-06-12 00:09 | NUR ---
PT REFUSING LAB DRAW AT THIS TIME. ERP AWARE
--- NOTE | 2020-06-12 00:35 | NUR ---
Patient/Caregiver given discharge instructions and they have confirmed that they understand the instructions. Patient ambulatory with steady gait.
== END 2020-06-12 00:39 | disposition home or self-care (01) ==
LOC: ED 06-12 00:30
DX: M79.10 Myalgia, unspecified site (principal)
CPT/HCPCS: 99281